=== PATIENT | female | born 1960 | race Caucasian/White ===

== ENCOUNTER → 2021-02-21 | Outpatient (CLI) | payer OTHER ==
[~2021-02-21] MED LIST: ALDACTONE 25MG25 M1 PO; CORDARONE200 MG/TAB PO; DIFLUCAN 40M40 MG/ML PO; ELIQUIS 2.5 PO; ELIQUIS 5MG PO; K-DUR20 MEQ PO; MAG-OX 400400 MG/TAB PO; MAGIC MOUTH PO; MAGNESIUM ELEM300 MG PO; ONE-A-DAY ESSE1 EACH PO; OXYCODONE H5 MG/5 ML PO; PROTONIX 40MG T40 MG PO; TUMS500 MG; TUMS500 MG PO; VITAMIN D31000 I1 PO; ZOFRAN ODT4 MG PO; ZOVIRSUSP PO
== END ==
LOC: COL.RAD 10:40
DX: J18.9 Pneumonia, unspecified organism (principal); R91.8 Other nonspecific abnormal finding of lung field

== ENCOUNTER 2021-02-27 08:00 | Inpatient (IN) | payer OTHER ==
[~2021-02-27] VITALS: Ht 177.8 cm; Wt 54.5 kg
[2021-02-27 09:07] LABS: BASO % 0.5 % (0.0-2.0); EOS % 0.5 % (0-4.0); GRAN # 4.5 (1.4-6.5); GRAN % 76.2 % (42.2-75.2); HEMATOCRIT 38.1 % (37.0-47.0); HEMOGLOBIN 13.4 g/dl (12.5-16.0); LYMPH # 0.8 (1.2-3.4); LYMPH % 13.1 % (20.0-51.0); MEAN CELL VOLUME 88 fl (80.0-100.0); MEAN CORPUSCULAR HEMOGLOBIN 31 pg (27.0-31.0); MEAN CORPUSCULAR HGB CONC 35 g/dl (33.0-37.0); MEAN PLATELET VOLUME 8.4 fl (7.4-10.4); MONO # 0.5 (0.1-0.6); MONO % 9.2 % (1.7-9.3); PLATELET COUNT 295 K/mm3 (130-400); RED BLOOD COUNT 4.32 M/mm3 (4.10-5.30); REDCELL DISTRIBUTION WIDTH-CV 11.8 % (11.5-14.5)
[2021-02-27 09:22] LABS: ALBUMIN 4.4 gm/dL (3.5-5.0); BILIRUBIN,TOTAL 0.3 mg/dL (0.0-1.0); C-REACTIVE PROTEIN 3.5 mg/dL (0.0-0.9); CALCIUM 9.6 mg/dL (8.4-10.2); CREATININE, serum 0.49 (0.52-1.25); MAGNESIUM 1.7 mg/dL (1.6-2.3); POTASSIUM 3.7 mmol/L (3.4-5.0); TOTAL PROTEIN 8.1 gm/dL (6.4-8.2)
[2021-02-27 09:42] LABS: PH 5 (5-8); URINE APPEARANCE Hazy; URINE COLOR Yellow; URINE GLUCOSE Negative (NEGATIVE); URINE PROTEIN(semi-quant) 1+ (NEGATIVE)
[2021-02-27 09:43] LABS: URINE BILIRUBIN Negative (NEGATIVE); URINE BLOOD Negative (NEGATIVE); URINE KETONE 1+ (NEGATIVE); URINE LEUKOCYTE ESTERASE Negative (NEGATIVE); URINE NITRATE Negative (NEGATIVE); URINE UROBILINOGEN Negative (NEGATIVE)
[2021-02-27 09:45] LABS: SQUAMOUS EPITHELIAL 0-2 /hpf; URINE CALCIUM OXALATE CRYSTAL Present /hpf; URINE RBC 0-2 /hpf
[2021-02-27 09:46] LABS: MUCOUS Present /lpf; URINE BACTERIA Rare /hpf
[2021-02-27 09:48] LABS: COLLECTION METHOD CLEAN CATCH
[2021-02-27] MEDS ORDERED: ELIQUIS 5MG PO (11:26)
[2021-02-27] MEDS ORDERED: K-DUR20 MEQ PO (11:28)
[2021-02-27] MEDS ORDERED: ALDACTONE 25MG25 M1 PO (11:29)
[2021-02-27] MEDS ORDERED: ZOFRAN ODT4 MG PO (11:30)
[2021-02-27] MEDS ORDERED: VITAMIN D31000 I1 PO (11:31)
[2021-02-27] MEDS ORDERED: MAGNESIUM ELEM300 MG PO (11:31)
[2021-02-27] MEDS ORDERED: ONE-A-DAY ESSE1 EACH PO (11:32)
[2021-02-27 12:41] VITALS: BP 132/70; PULSE 102; TEMP 97.9
[2021-02-27 16:14] LABS: CALCIUM 9.4 mg/dL (8.4-10.2); CREATININE, serum 0.5 (0.52-1.25); POTASSIUM 3.5 mmol/L (3.4-5.0)
[2021-02-27 17:33] VITALS: BP 123/69; PULSE 97; TEMP 97.4
[2021-02-27 19:58] VITALS: BP 133/72; PULSE 92; TEMP 98.3
[2021-02-27 23:01] VITALS: BP 111/56; PULSE 119; TEMP 98.1
[2021-02-27 23:34] LABS: MAGNESIUM 1.8 mg/dL (1.6-2.3); PHOSPHOROUS 3.8 mg/dL (2.5-4.5)
[2021-02-27 23:37] VITALS: BP 108/84; PULSE 100
[2021-02-27 23:45] VITALS: PULSE 161
[2021-02-27 23:49] LABS: ARTERIAL BLD GAS O2 SATURATION 95.8 % (92-100); ARTERIAL BLOOD GAS HCO3 24.9 meq/L (22-26); ARTERIAL BLOOD GAS PCO2 33.7 mmHg (35-45); ARTERIAL BLOOD GAS PO2 75.2 mmHg (80-100); ARTERIAL BLOOD GAS pH 7.49 (7.35-7.45)
[2021-02-28] VITALS (786 sets, daily range): BP systolic 68–130; BP diastolic 49–99; PULSE 75–118; TEMP 97.6–97.9; O2SAT 65–100
[2021-02-28 00:02] LABS: TROPONIN-I < 0.012 ng/mL (0.000-0.035)
[2021-02-28 02:28] LABS: BASO % 0.5 % (0.0-2.0); EOS # 0.1 (0.0-0.7); EOS % 1.5 % (0-4.0); GRAN # 4.2 (1.4-6.5); GRAN % 68.5 % (42.2-75.2); HEMOGLOBIN 12.8 g/dl (12.5-16.0); LYMPH # 1.1 (1.2-3.4); LYMPH % 17.3 % (20.0-51.0); MEAN CELL VOLUME 88 fl (80.0-100.0); MEAN CORPUSCULAR HEMOGLOBIN 31 pg (27.0-31.0); MEAN CORPUSCULAR HGB CONC 35 g/dl (33.0-37.0); MEAN PLATELET VOLUME 7.8 fl (7.4-10.4); MONO # 0.7 (0.1-0.6); MONO % 11.9 % (1.7-9.3); PLATELET COUNT 237 K/mm3 (130-400); REDCELL DISTRIBUTION WIDTH-CV 11.9 % (11.5-14.5)
[2021-02-28 02:29] LABS: HEMATOCRIT 36.2 % (37.0-47.0)
[2021-02-28 02:37] LABS: ANION GAP 8 mmol/L (7-16); BLOOD UREA NITROGEN 9 mg/dL (7-17); CARBON DIOXIDE 25 mmol/L (22-30); CHLORIDE 94 mmol/L (98-107); CREATININE, serum 0.38 (0.52-1.25); GLUCOSE 110 mg/dL (74-106); POTASSIUM 3.7 mmol/L (3.4-5.0); SODIUM 127 mmol/L (137-145)
[2021-02-28 02:48] LABS: MAGNESIUM 1.8 mg/dL (1.6-2.3); PHOSPHOROUS 4.4 mg/dL (2.5-4.5)
[2021-02-28 02:50] LABS: TROPONIN-I < 0.012 ng/mL (0.000-0.035)
[2021-02-28 06:56] LABS: BASO % 0.3 % (0.0-2.0); EOS % 0.3 % (0-4.0); GRAN # 4.5 (1.4-6.5); GRAN % 77.1 % (42.2-75.2); HEMOGLOBIN 12.4 g/dl (12.5-16.0); LYMPH # 0.7 (1.2-3.4); LYMPH % 11.1 % (20.0-51.0); MEAN CELL VOLUME 90 fl (80.0-100.0); MEAN CORPUSCULAR HEMOGLOBIN 32 pg (27.0-31.0); MEAN CORPUSCULAR HGB CONC 35 g/dl (33.0-37.0); MEAN PLATELET VOLUME 8.4 fl (7.4-10.4); MONO # 0.6 (0.1-0.6); MONO % 10.5 % (1.7-9.3); PLATELET COUNT 254 K/mm3 (130-400); RED BLOOD COUNT 3.91 M/mm3 (4.10-5.30); REDCELL DISTRIBUTION WIDTH-CV 11.9 % (11.5-14.5)
[2021-02-28 06:59] LABS: HEMATOCRIT 35.1 % (37.0-47.0)
[2021-02-28 07:10] LABS: CALCIUM 8.4 mg/dL (8.4-10.2); CREATININE, serum 0.34 (0.52-1.25); MAGNESIUM 1.8 mg/dL (1.6-2.3)
[2021-03-01] VITALS (333 sets, daily range): BP systolic 87–114; BP diastolic 52–77; PULSE 87–93; TEMP 97.9–98.3; O2SAT 82–100
[2021-03-01 04:35] LABS: BASO % 0.5 % (0.0-2.0); EOS # 0.1 (0.0-0.7); EOS % 1.5 % (0-4.0); GRAN # 4.5 (1.4-6.5); GRAN % 75.4 % (42.2-75.2); HEMOGLOBIN 10.9 g/dl (12.5-16.0); LYMPH # 0.7 (1.2-3.4); LYMPH % 11.3 % (20.0-51.0); MEAN CELL VOLUME 91 fl (80.0-100.0); MEAN CORPUSCULAR HEMOGLOBIN 31 pg (27.0-31.0); MEAN CORPUSCULAR HGB CONC 34 g/dl (33.0-37.0); MEAN PLATELET VOLUME 8.1 fl (7.4-10.4); MONO # 0.6 (0.1-0.6); MONO % 10.8 % (1.7-9.3); PLATELET COUNT 234 K/mm3 (130-400); RED BLOOD COUNT 3.51 M/mm3 (4.10-5.30); REDCELL DISTRIBUTION WIDTH-CV 12.2 % (11.5-14.5)
[2021-03-01 04:46] LABS: CALCIUM 8.5 mg/dL (8.4-10.2); CREATININE, serum 0.36 (0.52-1.25); POTASSIUM 3.9 mmol/L (3.4-5.0)
[2021-03-01] MEDS ORDERED: ELIQUIS 5MG PO (11:24)
[2021-03-01] MEDS ORDERED: CORDARONE200 MG/TAB PO (11:27)
== END 2021-03-01 13:03 | disposition home or self-care (01) | DRG 180 ==
LOC: COL.ER 08:00 → ICU 10:47 → MEDICAL 10:47 → ICU 02-28 00:27 → MEDICAL 02-28 00:27 → ICU 03-01 13:03
PROVIDERS: Family Medicine; Nurse Practitioner Family; Physician Assistant; Student in an Organized Health Care Education/Training Program
PROC: 0BBG3ZX Excision of Left Upper Lung Lobe, Percutaneous Approach, Diagnostic (ICD-10-PCS; principal; 2021-02-28)
DX: C34.12 Malignant neoplasm of upper lobe, left bronchus or lung (principal); G93.41 Metabolic encephalopathy; J96.01 Acute respiratory failure with hypoxia; E22.2 Syndrome of inappropriate secretion of antidiuretic hormone; E46 Unspecified protein-calorie malnutrition; I50.32 Chronic diastolic (congestive) heart failure; I50.9 Heart failure, unspecified; E87.8 Other disorders of electrolyte and fluid balance, not elsewhere classified; E87.6 Hypokalemia; E83.42 Hypomagnesemia; I95.9 Hypotension, unspecified; I48.91 Unspecified atrial fibrillation; F41.9 Anxiety disorder, unspecified; I49.9 Cardiac arrhythmia, unspecified; Z87.891 Personal history of nicotine dependence; Z88.1 Allergy status to other antibiotic agents; Z88.0 Allergy status to penicillin; Z88.2 Allergy status to sulfonamides
CPT/HCPCS: 99233-AI; 99239; A9585; J1650; J2060; J2405; J3475; J7030; J7040; J7120; Q9967

== ENCOUNTER → 2021-03-01 | Outpatient (CLI) | payer OTHER | LOC: SDCO 09:00 → EDSTATUS 09:00 → ZCOL.LAB 12:00 | DX: R91.8 Other nonspecific abnormal finding of lung field (principal) ==

== ENCOUNTER 2021-04-03 11:23 | Day surgery (SDC) | payer OTHER ==
[~2021-04-03] VITALS: Ht 177.8 cm; Wt 51.0 kg
[~2021-04-03 11:23] MED LIST changes: -DIFLUCAN 40M40 MG/ML PO; -ELIQUIS 2.5 PO; -MAG-OX 400400 MG/TAB PO; -MAGIC MOUTH PO; -OXYCODONE H5 MG/5 ML PO; -PROTONIX 40MG T40 MG PO; -TUMS500 MG; -TUMS500 MG PO; -ZOVIRSUSP PO
[2021-04-03 11:45] VITALS: BP 115/61; PULSE 83; TEMP 97.8
[2021-04-03] MEDS ORDERED: ELIQUIS 5MG PO (12:04)
[2021-04-03] MEDS ORDERED: CORDARONE200 MG/TAB PO (12:05)
[2021-04-03 14:34] VITALS: BP 132/77; PULSE 73; TEMP 97.3
--- NOTE | 2021-04-03 14:34 | NUR ---
The patient arrived back to [facility] from the operating room at this time. The patient appears alert and oriented and denies any pain or nausea at this time. Post operative vital signs were started at this time. The patient's is at her bedside at this time. The patient denies wanting anything to eat or drink at this time. Will continue to monitor the patient.
[2021-04-03 14:35] LABS: MEAN CELL VOLUME 90 fl (80.0-100.0); MEAN CORPUSCULAR HGB CONC 34 g/dl (33.0-37.0); MEAN PLATELET VOLUME 8.9 fl (7.4-10.4); PLATELET COUNT 116 K/mm3 (130-400); RED BLOOD COUNT 2.88 M/mm3 (4.10-5.30); REDCELL DISTRIBUTION WIDTH-CV 12.2 % (11.5-14.5)
[2021-04-03 14:44] LABS: HEMOGLOBIN 8.9 g/dl (12.5-16.0); MEAN CORPUSCULAR HEMOGLOBIN 31 pg (27.0-31.0)
[2021-04-03 14:49] VITALS: BP 130/65; PULSE 56
--- NOTE | 2021-04-03 14:49 | NUR ---
The patient continues to deny wanting anything to eat or drink at this time. The patient's vital signs appear stable. remains at her bedside. Dressings to her right chest and neck appear clean dry and intact. Call light is within reach. Will continue to monitor the patient.
[2021-04-03 15:05] VITALS: BP 128/68; PULSE 62
--- NOTE | 2021-04-03 15:05 | NUR ---
Discharge instrucitons were reviewed with the patient and her at this time. They both verbalized understanding and have no questions for the nurse at this time. The patient's IV to her left forearm was was removed and a pressure dressing was applied to the site. The nurse instructed the patient to get dressed and notify the staff when she is ready to be escorted out.
[2021-04-03 15:15] LABS: BAND 1 % (0-10); BASOPHIL 2 % (0-2); EOSINOPHIL 3 % (0-4); LYMPHOCYTE 48 % (20.0-51.0); NEUTROPHILS 46 % (42.0-75.2); PLATELET ESTIMATE NORMAL (NORMAL)
--- NOTE | 2021-04-03 15:15 | NUR ---
The patient was escorted out via wheelchair to a private vehicle by KIRILL Mireles. The patient's is present to drive her home.
[2021-04-03 15:16] LABS: HYPOCHROMIA 1+; OVALOCYTES 1+
== END 2021-04-03 15:15 | disposition home or self-care (01) ==
LOC: SDCO 11:23
PROVIDERS: Surgery
DX: Z45.2 Encounter for adjustment and management of vascular access device (principal); C34.82 Malignant neoplasm of overlapping sites of left bronchus and lung; C77.1 Secondary and unspecified malignant neoplasm of intrathoracic lymph nodes; C78.1 Secondary malignant neoplasm of mediastinum; I11.0 Hypertensive heart disease with heart failure; I50.9 Heart failure, unspecified; Z79.01 Long term (current) use of anticoagulants; Z79.899 Other long term (current) drug therapy; Z87.891 Personal history of nicotine dependence
CPT/HCPCS: C1788; J1644; J7120

== ENCOUNTER 2021-05-15 13:38 | Emergency (ER) | payer OTHER ==
[~2021-05-15] VITALS: Ht 175.3 cm; Wt 45.5 kg
[2021-05-15 14:29] VITALS: TEMP 98
[2021-05-15 15:49] LABS: MEAN CELL VOLUME 94 fl (80.0-100.0); MEAN CORPUSCULAR HGB CONC 33 g/dl (33.0-37.0); MEAN PLATELET VOLUME 9.5 fl (7.4-10.4); PLATELET COUNT 50 K/mm3 (130-400); REDCELL DISTRIBUTION WIDTH-CV 18.1 % (11.5-14.5)
[2021-05-15 15:50] LABS: MEAN CORPUSCULAR HEMOGLOBIN 31 pg (27.0-31.0)
[2021-05-15 15:51] LABS: HEMOGLOBIN 5.2 g/dl (12.5-16.0)
[2021-05-15 16:07] LABS: ALBUMIN 3.6 gm/dL (3.5-5.0); BILIRUBIN,TOTAL 0.3 mg/dL (0.0-1.0); CALCIUM 9.3 mg/dL (8.4-10.2); CREATININE, serum 0.39 (0.52-1.25); POTASSIUM 3.6 mmol/L (3.4-5.0); TOTAL PROTEIN 6.6 gm/dL (6.4-8.2)
[2021-05-15 17:20] VITALS: BP 121/87; PULSE 91
[2021-05-15 17:28] LABS: C-REACTIVE PROTEIN 34.8 mg/dL (0.0-0.9)
[2021-05-15] MEDS ORDERED: ELIQUIS 2.5 PO (19:34)
[2021-05-15] MEDS ORDERED: MAG-OX 400400 MG/TAB PO (19:36)
[2021-05-15] MEDS ORDERED: OXYCODONE H5 MG/5 ML PO (19:37)
[2021-05-15] MEDS ORDERED: PROTONIX 40MG T40 MG PO (19:38)
[2021-05-15] MEDS ORDERED: MAGIC MOUTH PO (19:38)
[2021-05-16 07:59] LABS: PATHOLOGY DIFF REVIEW OK +
== END 2021-05-15 17:20 | disposition home or self-care (01) ==
LOC: COL.ER 13:38
PROVIDERS: Family Medicine
DX: E86.0 Dehydration (principal); K29.00 Acute gastritis without bleeding; J90 Pleural effusion, not elsewhere classified; D64.9 Anemia, unspecified; C34.12 Malignant neoplasm of upper lobe, left bronchus or lung; I50.9 Heart failure, unspecified; Z87.891 Personal history of nicotine dependence; Z79.01 Long term (current) use of anticoagulants
CPT/HCPCS: C9113; J2270; J2405; J7120

== ENCOUNTER 2021-05-15 16:07 | Outpatient (RCR) | payer OTHER ==
[2021-05-15] VITALS (9 sets, daily range): BP systolic 112–123; BP diastolic 45–67; PULSE 80–95; TEMP 98–99
[~2021-05-15] VITALS: Ht 175.3 cm; Wt 41.8 kg
[2021-05-15] MEDS ORDERED: ELIQUIS 2.5 PO (19:34)
[2021-05-15] MEDS ORDERED: MAG-OX 400400 MG/TAB PO (19:36)
[2021-05-15] MEDS ORDERED: OXYCODONE H5 MG/5 ML PO (19:37)
[2021-05-15] MEDS ORDERED: MAGIC MOUTH PO (19:38)
[2021-05-15] MEDS ORDERED: PROTONIX 40MG T40 MG PO (19:38)
--- NOTE | 2021-05-15 23:45 | NUR ---
PATIENT COMPLETED INFUSION OF 2 UNITS OF PRBC'S FLUSHED PORT A CATH AND HEPARIN 500 UNITS/5ML INSTILLED ORDERED, NO ADVERSE REACTIONS NOTED INSTRUCTED PATIENT AND OF SIGNS AND SYMPTOMS OF TRANSFUSION REACTION, PATIENT TRANSPORTED VIA W/C TO AWAITING PERSONAL VEHICLE
[2021-05-22] MEDS ORDERED: DIFLUCAN 40M40 MG/ML PO (09:21)
[2021-05-22] MEDS ORDERED: ZOVIRSUSP PO (09:22)
[2021-05-22] MEDS ORDERED: TUMS500 MG PO (09:24)
== END 2021-05-23 15:21 | disposition home or self-care (01) ==
LOC: EUO 16:07
DX: Z95.9 Presence of cardiac and vascular implant and graft, unspecified (principal)
CPT/HCPCS: J2270; J2405; J7050; P9016

== ENCOUNTER → 2021-06-14 | Outpatient (CLI) | payer OTHER ==
[~2021-06-14] MED LIST changes: +DIFLUCAN 40M40 MG/ML PO; +ELIQUIS 2.5 PO; +MAG-OX 400400 MG/TAB PO; +MAGIC MOUTH PO; +OXYCODONE H5 MG/5 ML PO; +PROTONIX 40MG T40 MG PO; +TUMS500 MG; +TUMS500 MG PO; +ZOVIRSUSP PO
== END ==
LOC: COL.RAD 09:51
DX: C34.32 Malignant neoplasm of lower lobe, left bronchus or lung (principal); Z98.82 Breast implant status; J47.9 Bronchiectasis, uncomplicated; J18.1 Lobar pneumonia, unspecified organism
CPT/HCPCS: J1644; Q9967

== ENCOUNTER 2021-06-21 10:30 | Outpatient (RCR) | payer OTHER ==
[2021-06-21] VITALS (9 sets, daily range): BP systolic 93–129; BP diastolic 39–68; PULSE 66–84; TEMP 97.9–99
[~2021-06-21] VITALS: Ht 175.3 cm; Wt 47.7 kg
[~2021-06-21 10:30] MED LIST changes: -TUMS500 MG
[2021-06-21] MEDS ORDERED: TUMS500 MG (14:20)
[2021-06-21] MEDS ORDERED: ELIQUIS 5MG PO (14:22)
== END 2021-06-21 19:10 | disposition home or self-care (01) ==
LOC: EUO 10:30
DX: C34.32 Malignant neoplasm of lower lobe, left bronchus or lung (principal)
CPT/HCPCS: J1644; J7050; P9016

== ENCOUNTER → 2021-07-26 | Outpatient (CLI) | payer OTHER ==
[~2021-07-26] MED LIST changes: +TUMS500 MG
== END ==
LOC: COL.RAD 12:40
DX: R91.8 Other nonspecific abnormal finding of lung field (principal); C34.32 Malignant neoplasm of lower lobe, left bronchus or lung
CPT/HCPCS: J1644; Q9967

== ENCOUNTER → 2021-08-13 | Outpatient (CLI) | payer OTHER | LOC: COL.RAD 12:09 | DX: C34.12 Malignant neoplasm of upper lobe, left bronchus or lung (principal) | CPT/HCPCS: A9585 ==

== ENCOUNTER → 2021-11-01 | Outpatient (CLI) | payer BC | LOC: COL.RAD 10:41 | DX: C34.32 Malignant neoplasm of lower lobe, left bronchus or lung (principal); J43.9 Emphysema, unspecified; M48.54XA Collapsed vertebra, not elsewhere classified, thoracic region, initial encounter for fracture | CPT/HCPCS: Q9967 ==

== ENCOUNTER → 2021-11-13 | Outpatient (CLI) | payer BC | LOC: COL.RAD 12:12 | DX: Z51.0 Encounter for antineoplastic radiation therapy (principal); C34.12 Malignant neoplasm of upper lobe, left bronchus or lung; G31.9 Degenerative disease of nervous system, unspecified | CPT/HCPCS: A9575; J1644 ==

== ENCOUNTER → 2022-02-13 | Outpatient (CLI) | payer BC | LOC: COL.RAD 09:36 | DX: C34.90 Malignant neoplasm of unspecified part of unspecified bronchus or lung (principal); M48.54XA Collapsed vertebra, not elsewhere classified, thoracic region, initial encounter for fracture | CPT/HCPCS: J1644; Q9967 ==

== ENCOUNTER → 2022-06-02 | Outpatient (CLI) | payer BC | LOC: COL.RAD 07:39 | DX: C34.90 Malignant neoplasm of unspecified part of unspecified bronchus or lung (principal); J43.9 Emphysema, unspecified | CPT/HCPCS: J1644; Q9967 ==

== ENCOUNTER → 2022-12-16 | Outpatient (CLI) | payer BC | LOC: COL.RAD 09:49 | DX: J98.4 Other disorders of lung (principal); C34.32 Malignant neoplasm of lower lobe, left bronchus or lung | CPT/HCPCS: Q9967 ==

== ENCOUNTER → 2023-01-01 | Outpatient (CLI) | payer BC | LOC: COL.RAD 12:17 | DX: Z51.0 Encounter for antineoplastic radiation therapy (principal); C34.12 Malignant neoplasm of upper lobe, left bronchus or lung | CPT/HCPCS: A9575 ==

== ENCOUNTER → 2023-09-21 | Outpatient (CLI) | payer BC | LOC: COL.RAD 09:10 | DX: C34.32 Malignant neoplasm of lower lobe, left bronchus or lung (principal) | CPT/HCPCS: J1644; Q9967 ==

== ENCOUNTER → 2024-02-09 | Outpatient (CLI) | payer BC | LOC: COL.RAD 08:00 | DX: C34.32 Malignant neoplasm of lower lobe, left bronchus or lung (principal) ==

== ENCOUNTER 2024-07-01 18:19 | Inpatient (IN) | payer BC ==
[~2024-07-01] VITALS: Ht 175.3 cm; Wt 53.0 kg
[2024-07-01] MEDS ORDERED: fentaNYL 50 MCG/ML 2 ML VIAL IV ONE (19:00)
[2024-07-01] MEDS ORDERED: NS 1,000 ML IV ONE (19:00)
[2024-07-01 19:22] LABS: HEMOGLOBIN 12.1 g/dl (12.5-16.0); MEAN CELL VOLUME 103 fl (80.0-100.0); MEAN CORPUSCULAR HEMOGLOBIN 35 pg (27-31); MEAN CORPUSCULAR HGB CONC 34 g/dl (33.0-37.0); PLATELET COUNT 170 K/mm3 (130-400); RED BLOOD COUNT 3.51 M/mm3 (4.10-5.30); REDCELL DISTRIBUTION WIDTH-CV 14.2 % (11.5-14.5)
[2024-07-01 19:29] LABS: HEMATOCRIT 36.1 % (37.0-47.0)
[2024-07-01 19:37] LABS: ALBUMIN 3.5 g/dL (3.4-4.8); BILIRUBIN,TOTAL 0.5 mg/dL (0.2-1.2); CALCIUM 9.3 mg/dL (8.4-10.2); CREATININE, serum 0.78 mg/dL (0.57-1.11); POTASSIUM 3.9 mEq/L (3.5-4.5); TOTAL PROTEIN 6.4 g/dl (6.2-8.1)
[2024-07-01 19:42] LABS: TROPONIN-I 0.011 ng/mL (0.00-0.033)
[2024-07-01 19:43] LABS: BAND 14 % (0-10); LYMPHOCYTE 2 % (20.0-51.0); METAMYELOCYTE 1 % (0-0); NEUTROPHILS 79 % (42.0-75.2)
[2024-07-01] MEDS ORDERED: VALIUM 5MG T5 MG/TAB PO (20:02)
[2024-07-01] MEDS ORDERED: LEXAPRO 10MG10 MG PO (20:02)
[2024-07-01] MEDS ORDERED: PROAIR HFA0.09 MG/AC IH (20:03)
[2024-07-01] MEDS ORDERED: VITAMIN D31000 IU PO (20:04)
[2024-07-01 20:20] VITALS: BP 114/74; PULSE 74; TEMP 97.4
[2024-07-01] MEDS ORDERED: Albuterol 0.042% Neb Soln 1.25 MG/3 ML UD IH PRN (20:30)
[2024-07-01] MEDS ORDERED: oxyCODONE 5 MG TAB PO PRN (20:30)
[2024-07-01] MEDS ORDERED: Acetaminophen 500 MG TAB PO PRN (20:45)
[2024-07-01] MEDS ORDERED: HYDROmorphone 0.5 MG/0.5 ML SYRINGE IV PRN (20:45)
[2024-07-01 21:00] VITALS: BP_SYST 114
[2024-07-01 22:07] LABS: COLLECTION METHOD CATHETER
[2024-07-01 22:16] LABS: URINE APPEARANCE CLEAR (CLEAR/HAZY); URINE BLOOD NEGATIVE (NEGATIVE); URINE COLOR YELLOW (YELLOW); URINE GLUCOSE NEGATIVE (NEGATIVE); URINE KETONE NEGATIVE (NEGATIVE); URINE NITRATE NEGATIVE (NEGATIVE); URINE PROTEIN(semi-quant) NEGATIVE (NEGATIVE); URINE UROBILINOGEN 0.2 E.U/dL (0.2-1.0)
[2024-07-01] MEDS ORDERED: Naloxone 0.4 MG/ML VIAL IV PRN (22:30)
[2024-07-01] MEDS ORDERED: LR 1,000 ML IV SCH (23:15)
[2024-07-02] VITALS (16 sets, daily range): BP systolic 100–124; BP diastolic 57–78; PULSE 79–99; TEMP 97.6–98.7
[2024-07-02 06:28] LABS: PROTHROMBIN TIME 10.5 SECONDS (9.7-12.8)
[2024-07-02 06:30] LABS: BASO % 0.4 % (0.0-2.0); EOS % 0.1 % (0.0-4.0); GRAN # 7.1 K/mm3 (1.4-6.5); HEMOGLOBIN 10.7 g/dl (12.5-16.0); LYMPH # 0.5 K/mm3 (1.2-3.4); LYMPH % 5.7 % (20.0-51.0); MEAN CELL VOLUME 102 fl (80.0-100.0); MEAN CORPUSCULAR HEMOGLOBIN 34 pg (27-31); MEAN CORPUSCULAR HGB CONC 33 g/dl (33.0-37.0); MEAN PLATELET VOLUME 9.3 fl (7.4-10.4); MONO # 0.6 K/mm3 (0.1-0.6); PLATELET COUNT 144 K/mm3 (130-400); RED BLOOD COUNT 3.16 M/mm3 (4.10-5.30); REDCELL DISTRIBUTION WIDTH-CV 13.9 % (11.5-14.5)
[2024-07-02 06:41] LABS: HEMATOCRIT 32.1 % (37.0-47.0)
[2024-07-02 06:43] LABS: CALCIUM 9.4 mg/dL (8.4-10.2); CREATININE, serum 0.73 mg/dL (0.57-1.11); POTASSIUM 4.9 mEq/L (3.5-4.5)
--- NOTE | 2024-07-02 07:58 | NUR ---
GERALDO GONZALEZ ROUNDED WITH ORTHO. PATIENT AND HER SPOUSE UPDATED ON PLAN OF CARE. PATIENT CONTINUES TO COMPLAIN OF ELEVATED PAIN. 08/23. MEDICATIONS ORDERED. TYLENOL OFFERED AND REFUSED. REPOSITIONING OF LEFT LEG OFFERED AND REFUSED. RIGHT LEG ELEVATED ON PILLOW. ICE ON HIP. JOSE JUAN AND SCDS TO RLE. IS GIVEN BY RT. SHE REMAINS NPO WITH NAUSEA. ZOFRAN NOT YET DUE. DENIES OTHER NEEDS AT THIS TIME
[2024-07-02] MEDS ORDERED: Ondansetron 4 MG/2 ML VIAL IV PRN (08:00)
[2024-07-02] MEDS ORDERED: hydrALAZINE 20 MG/ML 1 ML VIAL IV PRN (08:00)
[2024-07-02] MEDS ORDERED: fentaNYL 50 MCG/ML 1 ML SYRINGE/VIAL [PACU/SDC ONLY] IV PRN ×2 (08:00)
[2024-07-02] MEDS ORDERED: droPERidol 2.5 MG/ML 2 ML VIAL IV PRN (08:00)
[2024-07-02] MEDS ORDERED: Meperidine 50 MG/ML 1 ML VIAL IV PRN (08:00)
[2024-07-02] MEDS ORDERED: HYDROmorphone 1 MG/1 ML SYRINGE [PACU/SDC ONLY] IV PRN (08:00)
[2024-07-02] MEDS ORDERED: cefTRIAXone 1 G in Water For Injection,Sterile 10 ML IV SCH (09:00)
[2024-07-02] MEDS ORDERED: Amiodarone 200 MG TAB PO SCH (09:00)
[2024-07-02] MEDS ORDERED: predniSONE 20 MG TAB PO SCH (09:11)
--- NOTE | 2024-07-02 09:36 | NUR ---
SW met with patient to complete intake and discuss discharge planning, patient is preparing for surgery and her Elio Lobato was present and assisted with intake information. Patient reports that her PCP is Dr. Islas and pharmacy of choice is [facility] Patient resides in [place] with spouse, and currently reports independent with ADLs and uses inhaler but no additional DMEs reported. Patient has DPOA on file with hospital. Discharge plan: tbd
--- NOTE | 2024-07-02 09:40 | NUR ---
rounded. Patient remains in severe pain. Rating 15/10. Medication as ordered. Attempted repositioning. Hygiene provided with stick welder assist
[2024-07-02] MEDS ORDERED: Acetaminophen 500 MG TAB PO SCH ×2 (09:45→14:18)
[2024-07-02] MEDS ORDERED: dexAMETHasone 10 MG/ML VIAL ONE (10:16)
[2024-07-02] MEDS ORDERED: Lidocaine PF 2% (20 MG/ML) 5 ML VIAL ONE (10:16)
[2024-07-02] MEDS ORDERED: fentaNYL 50 MCG/ML 2 ML VIAL ONE (11:08)
[2024-07-02] MEDS ORDERED: Midazolam 2 MG/2 ML VIAL ONE (11:08)
[2024-07-02] MEDS ORDERED: Ondansetron 4 MG/2 ML VIAL ONE (11:09)
[2024-07-02] MEDS ORDERED: NS 10 ML IV ONE (11:09)
--- NOTE | 2024-07-02 11:30 | NUR ---
Patient to OR with Cammy. Will await her return. Patient all prepped for OR. Ticket to ride. Pre op check list completed. IVF to gravity.
[2024-07-02] MEDS ORDERED: ePHEDrine 50 MG/ML VIAL ONE (12:27)
[2024-07-02] MEDS ORDERED: Topical Skin Adhesive 1 EACH (1 ML) TOP ONE (12:37)
--- NOTE | 2024-07-02 12:47 | NUR ---
Data: Patient declined spiritual care visit offered during Immigration Officer rounds, but did accept prayer. Assessment: Patient is tired; difficulty breathing; desired prayer. Plan of Care: Immigration Officer offered a prayer for healing. Chaplains will remain available as needed/requested while Patient is admitted to this hospital.
[2024-07-02] MEDS ORDERED: Phenylephrine 10 MG/ML VIAL ONE (12:52)
[2024-07-02] MEDS ORDERED: NS 100 ML IV ONE (12:52)
[2024-07-02] MEDS ORDERED: Albuterol/Ipratropium 3 MG-0.5 MG/3 ML Neb Soln IH SCH (13:00)
[2024-07-02] MEDS ORDERED: Magnes Hydrox (MOM) 80 MG/ML 30 ML CUP PO PRN (13:30)
[2024-07-02] MEDS ORDERED: Naloxone 0.4 MG/ML VIAL IV PRN (13:30)
[2024-07-02] MEDS ORDERED: oxyCODONE 5 MG TAB PO PRN (13:30)
[2024-07-02] MEDS ORDERED: ceFAZolin 1 G in Water For Injection,Sterile 10 ML IV SCH (17:18)
--- NOTE | 2024-07-02 17:56 | NUR ---
Patient resting in bed post op, her spouse at bedside. Patient anxious at times and having intermittent confusion. Reoriented as needed and support provided. High fall risk protocol followed. Left hip gauze and tegaderm dressing CDI. IV to INT. VSS post op on room air. TEDS and SCDS placed to BLE. Pillows for positioning. Roxocodone for pain, pain much better now than before OR. Bailey to DD with adequate urine output. Patient dinner ordered, with minimal interest at this time, but PO intake encouraged.
[2024-07-02] MEDS ORDERED: Magnesium Oxide 400 MG TAB PO SCH (21:00)
[2024-07-02] MEDS ORDERED: Sennosides/Docusate 8.6-50 MG TAB PO SCH (21:00)
[2024-07-03] VITALS (11 sets, daily range): BP systolic 95–138; BP diastolic 58–78; PULSE 86–118; TEMP 97.4–98.2
[2024-07-03] MEDS ORDERED: Acetaminophen 500 MG TAB PO SCH
--- NOTE | 2024-07-03 01:12 | NUR ---
PT VERY CONFUSED, CALLING 911 STATING SOMEONE IS IN HER ROOM TRYING TO HARM HER, VERY AGITATED, REFUSES TO BELIEVE STAFF THAT SHE IS IN THE HOSPITAL. PT'S SPOUSE CALLED AND HE IS COMING UP TO THE HOSPITAL TO STAY WITH HER.
--- NOTE | 2024-07-03 02:29 | NUR ---
PT'S SPOUSE MAKEDA HERE, AFTER SPEAKING WITH THIS RN AND MAKEDA, PT SLOWLY REMEMBERING WHERE SHE IS AND WHY, PT STATES "I MUST HAVE JUST HAD A BAD DREAM" DISCUSSED HOW WHEN PT FELL AND HIT HER HEAD SHE REFUSED CT SCAN, SHE WANTS TO TALK TO DOCTOR IN THE MORNING ABOUT GETTING THIS DONE TODAY IF CONFUSION CONTINUES. MAKEDA WILL BE STAYING FOR THE REST OF THE NOC.
--- NOTE | 2024-07-03 05:34 | NUR ---
CALLED TO ROOM BY PT'S SPOUSE, PT ATTEMPTING TO GET OUT OF BED ON HER OWN TO USE RESTROOM, NOT LISTENING TO SPOUSE THAT SHE NEEDS TO WAIT FOR HELP, ASSISTED PT TO BSC WITH STAFF X2, PT CONFUSED AGAIN, THINKS PEOPLE ARE OUT IN THE [place] TO GET HER, THIS RN GAVE OXYCODONE AT 0145 FOR C/O PAIN, SPOUSE THINKS THIS MAY HAVE MADE HER CONFUSED AGAIN. PT UNABLE TO HAVE BM, TRANSFERRED BACK TO BED, PT VERY SUSPICIOUS OF STAFF SPEAKING WITH MAKEDA, THINKS WE "ARE UP TO SOMETHING"
[2024-07-03 06:19] LABS: MEAN CORPUSCULAR HGB CONC 35 g/dl (33.0-37.0); MEAN PLATELET VOLUME 9.5 fl (7.4-10.4); PLATELET COUNT 136 K/mm3 (130-400); RED BLOOD COUNT 2.57 M/mm3 (4.10-5.30); REDCELL DISTRIBUTION WIDTH-CV 13.6 % (11.5-14.5)
--- NOTE | 2024-07-03 06:28 | NUR ---
rec'd phone call from pt's daughter, Christina, she reports that patient is a heavy, daily drinker and believes some of this confusion is withdrawel and DTs. after speaking with daughter, spoke with Elio who confirmed this info. will pass this on and get CIWA started for pt.
[2024-07-03 06:33] LABS: HEMATOCRIT 25.2 % (37.0-47.0); HEMOGLOBIN 8.7 g/dl (12.5-16.0); MEAN CELL VOLUME 98 fl (80.0-100.0); MEAN CORPUSCULAR HEMOGLOBIN 34 pg (27-31)
[2024-07-03 06:38] LABS: CALCIUM 9.9 mg/dL (8.4-10.2); CREATININE, serum 0.76 mg/dL (0.57-1.11); MAGNESIUM 1.7 mg/dL (1.6-2.6); POTASSIUM 4.4 mEq/L (3.5-4.5)
--- NOTE | 2024-07-03 07:00 | NUR ---
0700-LATE ENTRY- PIV IN LW DISLODGED, SITE DC'D, ACCESSED PORTACATH WITH 19G 0.75 MONTGOMERY NEEDLE WITH IMMEDIATE BLOOD RETURN, USING ASEPTIC TECHNIQUE, PT COOPERATIVE WITH PROCEDURE WITH SPOUSE ASSISTING.
[2024-07-03 07:36] LABS: BAND 8 % (0-10); LYMPHOCYTE 2 % (20.0-51.0); NEUTROPHILS 86 % (42.0-75.2)
[2024-07-03 07:37] LABS: PLATELET ESTIMATE NORMAL (NORMAL)
[2024-07-03] MEDS ORDERED: Calcium Carbonate 500 MG TAB PO SCH (09:00)
[2024-07-03] MEDS ORDERED: Ascorbic Acid 500 MG TAB PO SCH (09:00)
[2024-07-03] MEDS ORDERED: Rivaroxaban 10 MG TAB PO SCH (09:00)
[2024-07-03] MEDS ORDERED: Cholecalciferol (Vit D3) 25 MCG (1,000 Units) TAB PO SCH (09:00)
[2024-07-03] MEDS ORDERED: Folic Acid 1 MG TAB PO SCH (09:14)
[2024-07-03] MEDS ORDERED: LORazepam 2 MG/ML 1 ML VIAL IV PRN (09:15)
[2024-07-03] MEDS ORDERED: Mag/Al Hydrox/Simeth Susp 30 ML CUP PO PRN (09:15)
--- NOTE | 2024-07-03 09:38 | NUR ---
wine cellar worker was informed by RN that pt is very confused and not oriented. She is reportedly likely heavily detoxing. SW spoke with DAVIN Putnam who reports pt will need 48-72 hours of work up entailing a CT scan of her head due to fall with impact and UTI potentially causing confusion. PT/OT Pending Discharge Plan: tbd, medical clearance needed to assess options
--- NOTE | 2024-07-03 10:15 | NUR ---
PT REFUSED TX
--- NOTE | 2024-07-03 10:33 | NUR ---
MOVED PT FROM CLOSER TO NURSES STATION. PT CONFUSED AND AGGITATED, ATTEMPTING TO GET OUT OF BED BY SELF. PT NOT COMPREHENDING ANYTHING THIS NURSE EXPLAINS TO HER. PT TOOK 3 OR 4 OF HER MORNING MEDS AND THEN STATED "I DO NOT TAKE THESE MEDICATIONS" AND REFUSED TO TAKE THE REST. PT STATED THAT SHE NO LONGER WANTED THIS NURSE A NURSE BECAUSE "WE ARE JUST NOT GETTING ALONG" AFTER TRYING TO HELP HER ADJUST HER BED. PT DOWN AT CT RIGHT NOW.
[2024-07-03] MEDS ORDERED: Multivitamin TAB PO SCH ×2 (12:00→17:00)
--- NOTE | 2024-07-03 16:47 | NUR ---
PT SEEMS TO CONTINUE TO GET MORE CONFUSED. HAS TO BE REORIENTED FREQUENTLY. MEWS SCORE OF 3 REPORTED TO RADHA.
--- NOTE | 2024-07-03 17:13 | NUR ---
Patient taken to CT in bed this AM. Was slightly confused but tolerated good. Patient did mention potentially losing a sweater while in CT. I assured her we didn't remove a sweater and she didn't bring one down with her.
--- NOTE | 2024-07-03 18:25 | NUR ---
pt becoming increasingly confused and aggitated. pt calling daughter and and telling them "they are trying to kill me". and daughter understand what is going on. gave more ativan. atempted to call hospitalist to get something else ordered for pt. no answer.
--- NOTE | 2024-07-03 18:50 | NUR ---
PT AGITATED, TRYING TO GET OUT OF BED ON HER OWN, NOT LISTENING TO STAFF, VERY SUSPICIOUS OF STAFF'S INTENTIONS, SPOKE WITH PT'S DAUGHTER SUHA PER PHONE, SHE STATED THAT HALDOL HAS BEEN THE ONLY MEDICATION THAT HAS HELPED IN THE PAST, NOTIFIED DAVIN TAVERAS PER PHONE, ORDER REC'D.
[2024-07-03] MEDS ORDERED: Haloperidol Lactate 5 MG/ML VIAL IV ONE (19:00)
--- NOTE | 2024-07-03 19:50 | NUR ---
ATTEMPTED TO GIVEN HALDOL PER PORTACATH, UNABLE TO GET BLOOD RETURN FROM SITE, MONTGOMERY NEEDLE REMOVED, ATTEMPTED TO RE ACCESS PORT USING NEW NEEDLE AND STERILE TECHNIQUE WITH ASSIST OF 2 STAFF, UNABLE TO GET ANY BLOOD RETURN ON EACH ATTEMPT, TRIED 3 DIFFERENT NEEDLES. PIV PLACED IN RFA ON 1ST ATTEMPT, PT STRIKING OUT AT STAFF AT TIMES, VERY AGITATED, KEEPS SAYING WE ARE KILLING HER DOGS, HALDOL DOSE GIVEN, PT RESTING IN BED AFTERWARDS, LOOKING AT HER TABLET.
[2024-07-04] VITALS (14 sets, daily range): BP systolic 97–149; BP diastolic 52–87; PULSE 91–116; TEMP 97.5–98.7
--- NOTE | 2024-07-04 00:49 | NUR ---
RN OBTAINED PT VS, EASILY WAKES AND BECOMES CONFUSED, TRYING TO GET OUT OF BED ALONE, CIWA SCORE 9, 1 MG IV ATIVAN GIVEN PER PROTOCOL.
--- NOTE | 2024-07-04 06:05 | NUR ---
pt has slept well this shift after haldol x1 and ativan x1, wakes briefly, tries to get up without help but easily redirects with telesitter prompts and/or staff in room. issa draining cloudy yellow urine, has not taken in alot of po intake tonite. up to bsc this am to attempt a bm, no results, 2 assist with wlkr and gb
--- NOTE | 2024-07-04 07:30 | NUR ---
Patient was assisted up to chair this am, 2 assist with walker to chair. . tele sitter called patient restless. Patient wanting out of bed. Safety reviewed with patient, she does not follow direction well. Uses walker poorly, not constant reminders to keep her safe. High fall risk protocol. Warm blankets for comfort. breakfast ordered.
--- NOTE | 2024-07-04 09:40 | NUR ---
Patient worked with therapy. All morning medications reviewed one by one and explained. Patient still refused some medication, but was agreeable to take some. See EMAR. Verified patient able to have xarelto this am with [facility], reviewed H&H. Pharmacy called about patient concerns about payment of xarelto they will round on patient. Alcohol detox, medication as ordered. Patient anxious and paraniod. see emar
[2024-07-04 10:20] LABS: HEMATOCRIT 23.1 % (37.0-47.0); HEMOGLOBIN 7.9 g/dl (12.5-16.0)
[2024-07-04 10:23] LABS: CREATININE, serum 0.7 mg/dL (0.57-1.11); POTASSIUM 3.7 mEq/L (3.5-4.5)
[2024-07-04 10:51] LABS: BASO % 0.1 % (0.0-2.0); EOS % 0.1 % (0.0-4.0); GRAN # 7.9 K/mm3 (1.4-6.5); GRAN % 86.8 % (42.2-75.2); LYMPH # 0.4 K/mm3 (1.2-3.4); LYMPH % 4.2 % (20.0-51.0); MEAN CELL VOLUME 100 fl (80.0-100.0); MEAN CORPUSCULAR HGB CONC 35 g/dl (33.0-37.0); MONO # 0.7 K/mm3 (0.1-0.6); MONO % 8.1 % (1.7-9.3); PLATELET COUNT 129 K/mm3 (130-400); RED BLOOD COUNT 2.26 M/mm3 (4.10-5.30); REDCELL DISTRIBUTION WIDTH-CV 14.3 % (11.5-14.5)
[2024-07-04 10:53] LABS: HEMATOCRIT 22.6 % (37.0-47.0); HEMOGLOBIN 7.9 g/dl (12.5-16.0); MEAN CORPUSCULAR HEMOGLOBIN 35 pg (27-31)
[2024-07-04] MEDS ORDERED: Ferrous Sulfate 325 MG TAB PO SCH (12:00)
--- NOTE | 2024-07-04 12:27 | NUR ---
D: Process Improvement Engineer stopped by room on rounds. A: Pt was resting and content with in the room. Pt has no needs right now. P: Process Improvement Engineer informed pt that if she needed anything from the time study analyst area to let her nurse know. Process Improvement Engineer will follow up as needed.
--- NOTE | 2024-07-04 12:40 | NUR ---
Patient continues to have minimal appetite. Po intake encouraged. Noon medication reviewed. Pills cut in half per request, but not argreeable to take. See EMAR. Patient very irritable and aggitated. Detox protocol, see emar. her supportive spouse remains at bedside.
[2024-07-04] MEDS ORDERED: LORAZEPAM PO PRN (12:45)
--- NOTE | 2024-07-04 14:40 | NUR ---
Patient again very irriated, not wanting her vitals take. REviewed with patient the importance of vitals signs in hospital. She feels we are trying to hurt her. I explained the blood pressure squezing her arm. She is agreeable to get vitals completed. Medications per detox scale. She also reports pain being elevated. Medication as orderd. See Emar. continue to follow high fall risk protocol, reminding her why she can not get out of bed alone. She does not rememeber having therapy today, but did let her know she did have therapy sessions.
[2024-07-04] MEDS ORDERED: oxyCODONE 5 MG TAB PO PRN (15:30)
[2024-07-04] MEDS ORDERED: Ondansetron 4 MG/2 ML VIAL IV PRN (15:30)
[2024-07-04] MEDS ORDERED: Naloxone 0.4 MG/ML VIAL IV PRN (15:30)
--- NOTE | 2024-07-04 16:53 | NUR ---
feed in worker attended interdisciplinary clinical rounding with Dr. Graham. Dr. Graham is recommending IPR for patient and has put in an IPR consult. MARILUZ provided the Medicare.gov list for IPR and SNF. MARILUZ explained patient has BCBS and likely may not have skilled benefits for SNF but she would like to have a facility run her insurance to check. Patient and chose [facility] for SNF but would like to go to IPR in the [facility]. MARILUZ spoke with patient's about options for IPR out of town in case the [place] [facility] is unable to accept. Patient's chose IPR in [place] ([facility]) or IPR in [place]. Patient stated she was very serious about staying in [place] and did not want to go elsewhere. SW faxed referral to [facility] and [facility]. MARILUZ spoke with Lili, IPR director, regarding referral. MARILUZ spoke with [facility] whom confirmed patient does not have skilled benefits and would need to private pay. [facility] stated they are unable to accept patient at this time even if she were to private pay. MARILUZ notified patient's of this and discussed the private pay cost of [facility] and [facility]. Patient's would like to stay with IPR at the hospital if they are able to accept. MARILUZ will continue to follow as patient is not medically stable yet. MARILUZ attended multidisciplinary team meeting. Dr Graham stated patient would benefit from IPR in the hospital. MARILUZ was notified patient is not medically stable yet and it may be a couple days before she would be ready to discharge for rehab. Discharge plan: IPR pending accepting facility
--- NOTE | 2024-07-04 20:06 | NUR ---
Patient resting in bed with her spouse at bedside. Patient more irritable and anxious this evening. Refusing vitals from FIRE CONTROL MECHANIC-explained the importance. She was up to the bathroom with FIRE CONTROL MECHANIC assist. 2 assist for patient safety, walker used with direction. She did not feel like she needed Roxicodone for pain, she felt it was too early. She was agreeable to take Ativan to help her relax. Again went over medications patient has taken today with and patient & reviewed what the medications are for. Patient again did not eat dinner, no interest in food. PO intake encouraged. Bedside report to Candy to resume cares
[2024-07-05] VITALS (15 sets, daily range): BP systolic 84–148; BP diastolic 52–91; PULSE 96–119; TEMP 98–98.8
[2024-07-05 06:47] LABS: BASO % 0.2 % (0.0-2.0); EOS % 0.4 % (0.0-4.0); GRAN # 4.4 K/mm3 (1.4-6.5); GRAN % 81.6 % (42.2-75.2); LYMPH # 0.4 K/mm3 (1.2-3.4); LYMPH % 6.6 % (20.0-51.0); MEAN CELL VOLUME 101 fl (80.0-100.0); MEAN CORPUSCULAR HGB CONC 34 g/dl (33.0-37.0); MEAN PLATELET VOLUME 10.1 fl (7.4-10.4); MONO # 0.6 K/mm3 (0.1-0.6); MONO % 10.5 % (1.7-9.3); PLATELET COUNT 117 K/mm3 (130-400); RED BLOOD COUNT 2.05 M/mm3 (4.10-5.30)
[2024-07-05 07:02] LABS: HEMATOCRIT 20.7 % (37.0-47.0); HEMOGLOBIN 7.1 g/dl (12.5-16.0); MEAN CORPUSCULAR HEMOGLOBIN 35 pg (27-31)
[2024-07-05 07:08] LABS: CALCIUM 8.7 mg/dL (8.4-10.2); CREATININE, serum 0.66 mg/dL (0.57-1.11); POTASSIUM 3.4 mEq/L (3.5-4.5)
[2024-07-05] MEDS ORDERED: Potassium Bicarbonate/Citrate 20 MEQ Effervescent TAB PO SCH (08:15)
[2024-07-05] MEDS ORDERED: *Potassium Replacement Protocol MC SCH (08:15)
[2024-07-05] MEDS ORDERED: Thiamine 100 MG TAB PO SCH (09:00)
--- NOTE | 2024-07-05 10:32 | NUR ---
Clinical Allergist faxed clinical updates to [facility], then sent two additional referrals to [facility] and [facility].
--- NOTE | 2024-07-05 10:56 | NUR ---
PT UP TO RECLINER AFTER THERAPY. UP TO [facility] WITH PIVOT TRANSFER X2 ASSIST. PT VOIDED AND RETURNED TO RECLINER. IV ZOFRAN GIVEN FOR C/O NAUSEA POST POTASSIUM. PT AT BEDSIDE. ORTHO SIGNED OFF ON PT. PLAN ON TRANSFER TO [facility] OR [facility].
--- NOTE | 2024-07-05 17:21 | NUR ---
transportation worker attended interdisciplinary clinical rounding with Dr. Rodriguez. Patient is in need of placement for rehab after her hip fracture. MARILUZ and MARILUZ Vasquez spoke with patient and her regarding IPR in the hospital and outside of [place]. stated he would like to speak with the doctor before patient is discharged anywhere and would like to speak with the IPR team if she is not accepted here. SW explained she would relay this and she will also be following up on the facilities they discussed yesterday. Patient and thanked her. MARILUZ contacted [facility] whom expressed at this time "it would be a no" due to patient's behaviors but they would continue to receive updates and if she continues to improve they would consider her. MARILUZ was notified [place] [facility] beds are full and do not have any availability this week. MARILUZ attended multidisciplinary team meeting to discuss discharge plan and provided the above update. MARILUZ explained patient's insurance does not have skilled benefits. SW will continue to follow up. Patient is not medically ready at this time for discharge due to cognition. PT discussed patient possibly needing a psych evaluation. Discharge plan: IPR
--- NOTE | 2024-07-05 20:00 | NUR ---
Report from PCT that patients blood pressure is 84/52. Checked manually at this time by this nurse-112/58. Assessment complete. A&Ox3-forgetful. Denies nausea/shortness of breath. Rating pain 3/10 on pain scale-intermitteny ache-denies need for intervention. VS stable. Dressing to left hip-gauze/tegaderm-CDI. Bailey cath with clear yellow urine. SCD/JOSE JUAN bilat. Denies current needs. Call light in reach. WIll monitor.
--- NOTE | 2024-07-05 22:11 | NUR ---
Patient refusing Q2H vitals for ETOH protocol. Notified DAVIN Mireles. No new orders received. Discussed with patient that she would not be albe to receive pain meds unless current blood pressure was available due to having some lower blood pressures earlier. Verbalizes understanding. Call light in reach. Will monitor.
--- NOTE | 2024-07-05 22:25 | NUR ---
Patient has called [employer] stating there are people coming in her room who are not nurses. This nurse and [employer] to room to speak with patient. Patient asked this nurse to leave. Jeet AN remains in room talking to patient.
--- NOTE | 2024-07-05 23:20 | NUR ---
Patient continues to be confused. Has called spouse at home who then called this nurse for update. This nurse had attempted to call spouse after [employer] incident with no answer. Discussed with spouse that patient is confused and refusing Vital Signs. Spouse is questioning whether patient reeived any narcotics or anxiety medications. Patient has not at thus far but mainly due to refusing medications. Patient denies any needs at this time. Will monitor.
[2024-07-06] VITALS (16 sets, daily range): BP systolic 93–139; BP diastolic 60–91; PULSE 71–101; TEMP 97.8–98.3
--- NOTE | 2024-07-06 00:18 | NUR ---
This nurse to room to give scheduled tylenol. Patient refused stating it gives her heartburn. Rating pain 6/10 on pain scale to left hip-described as constant throbbing. Patient was agreeablae to take an oxycodone but after this nurse pulled the med to take to her she wanted me to leave it at the bedside. Explained I was unable to leave at the bedside but I could return it and when she was fully ready for it I would bring it back. Patient is agreeable to this. She is very teary eyed stating she is sorry for her being confused and she doesnt understand what is going on. DIscussed with patient that sometimes this happens after surgery. Denies any other questions/concerns. Call light in reach. Will monitor.
--- NOTE | 2024-07-06 04:02 | NUR ---
Patient continues to refuse vitals and medications. DAVIN Mireles aware. Will monitor.
--- NOTE | 2024-07-06 05:45 | NUR ---
Patient continues to refuse VS and medications. Did allow PCT to dump issa. Patient is CIWA but unable to score due to VS. DAVIN Mireles is aware and no new orders were received.
--- NOTE | 2024-07-06 05:53 | NUR ---
imaging tech is at bedside-patient is allowing lab to draw blood but refused protonix. Will monitor.
--- NOTE | 2024-07-06 06:29 | NUR ---
Patient called with c/o pain to left hip-rating pain 6/10 on pain scale-described as throbbing. Oxycodone given per dr order. Refused tylenol still stating it causes heartburn. Will continue to monitor.
[2024-07-06 06:46] LABS: BASO % 0.2 % (0.0-2.0); EOS # 0.1 K/mm3 (0.0-0.7); EOS % 1.2 % (0.0-4.0); GRAN # 3.2 K/mm3 (1.4-6.5); GRAN % 75.6 % (42.2-75.2); LYMPH # 0.5 K/mm3 (1.2-3.4); LYMPH % 11.6 % (20.0-51.0); MEAN CELL VOLUME 105 fl (80.0-100.0); MEAN CORPUSCULAR HGB CONC 33 g/dl (33.0-37.0); MEAN PLATELET VOLUME 9.7 fl (7.4-10.4); MONO # 0.5 K/mm3 (0.1-0.6); MONO % 10.9 % (1.7-9.3); PLATELET COUNT 139 K/mm3 (130-400); RED BLOOD COUNT 1.93 M/mm3 (4.10-5.30); REDCELL DISTRIBUTION WIDTH-CV 14.5 % (11.5-14.5)
[2024-07-06 06:48] LABS: HEMATOCRIT 20.3 % (37.0-47.0); HEMOGLOBIN 6.6 g/dl (12.5-16.0); MEAN CORPUSCULAR HEMOGLOBIN 34 pg (27-31)
--- NOTE | 2024-07-06 06:53 | NUR ---
Bedside report given to KIRILL Palm.
--- NOTE | 2024-07-06 06:56 | NUR ---
Critical Hgb of 6.6 passed on to KIRILL Palm in bedside report. Unable to reach hospitalist at this time.
[2024-07-06 06:58] LABS: CALCIUM 8.8 mg/dL (8.4-10.2); CREATININE, serum 0.67 mg/dL (0.57-1.11); POTASSIUM 3.7 mEq/L (3.5-4.5)
--- NOTE | 2024-07-06 07:30 | NUR ---
Patient sitting up in bed talking on speaker phone with daughter. Patient A&O. VSS. IV CDI. Bailey intact. Call light within reach. Bed alarm on
[2024-07-06] MEDS ORDERED: NS 250 ML IV ONE (10:30)
--- NOTE | 2024-07-06 12:53 | NUR ---
Blood transfusion started. Patient A&Ox3. at the bedside. VSS. IV CDI. Call light within reach. Bed alarm on
--- NOTE | 2024-07-06 13:09 | NUR ---
Nurse at the bedside first 15 minutes of blood transfusion. Patient A&Ox3. VSS. IV CDI. Denies pain and discomfort. at the bedside. Call light within reach. Bed alarm on
--- NOTE | 2024-07-06 15:21 | NUR ---
Blood transfusion complete. Patient tolerated well. A&Ox3. VSS. IV CDI. at the bedside. Call light within reach. Bed alarm on
--- NOTE | 2024-07-06 17:04 | NUR ---
farmworker dairy was notified patient is not medically ready for discharge as she needs a blood transfusion. SW was notified IPR at the hospital is still following along and would update the patient and family is they are unable to accept. SW updated patient and her family that [facility] is currently full and [facility] is requesting updates. SW explained the hospital is continuing to follow along with their IPR unit and they would update them if they are unable to accept. Patient and understood. SW encouraged patient to continue to work with therapy. SW attended multidisciplinary team meeting and provided the update above. everyone is in agreement patient will need rehab. Discharge plan: IPR pending acceptance at a facility
[2024-07-06] MEDS ORDERED: QUEtiapine 25 MG TAB PO SCH (18:03)
--- NOTE | 2024-07-06 20:00 | NUR ---
PILLOW PLACED BETWEEN LEGS FOR PATIENT REMINDER NOT TO CROSS HER LEGS. ZURDO REFUSING ICE TO SITE AT THIS TIME.
[2024-07-07] VITALS (14 sets, daily range): BP systolic 98–137; BP diastolic 66–82; PULSE 78–96; TEMP 97.9–98.5
--- NOTE | 2024-07-07 04:41 | NUR ---
ZURDO IS AWAKE AND ALERT SITTING UP IN BED, PATIENTS AT HER BEDSIDE. PATIENTS CONVERSATION SOMEWHAT CONFUSED, INAPPROPRIATE WORD FINDING. PATIENT DENIES ANY NEEDS AT THIS TIME. DRESSING TO L HIP INCISION SITE CDI. FALL PRECAUTIONS IN PLACE. CALL LIGHT WITHIN REACH.
[2024-07-07 06:36] LABS: BASO % 0.6 % (0.0-2.0); EOS # 0.1 K/mm3 (0.0-0.7); EOS % 2.2 % (0.0-4.0); GRAN # 3.7 K/mm3 (1.4-6.5); GRAN % 72.2 % (42.2-75.2); LYMPH # 0.6 K/mm3 (1.2-3.4); LYMPH % 11.6 % (20.0-51.0); MEAN CORPUSCULAR HGB CONC 33 g/dl (33.0-37.0); MEAN PLATELET VOLUME 9.5 fl (7.4-10.4); MONO # 0.7 K/mm3 (0.1-0.6); MONO % 12.8 % (1.7-9.3); PLATELET COUNT 173 K/mm3 (130-400); RED BLOOD COUNT 2.72 M/mm3 (4.10-5.30); REDCELL DISTRIBUTION WIDTH-CV 17.7 % (11.5-14.5)
[2024-07-07 06:39] LABS: HEMATOCRIT 27.3 % (37.0-47.0); MEAN CELL VOLUME 100 fl (80.0-100.0); MEAN CORPUSCULAR HEMOGLOBIN 33 pg (27-31)
[2024-07-07 06:40] LABS: HEMOGLOBIN 9.1 g/dl (12.5-16.0)
--- NOTE | 2024-07-07 06:42 | NUR ---
PATIENT IS AWAKE AND ALERT, UP TO COMMODE AND BACK TO BED WITH 1-2 PERSON ASSIT. PATIENTS LEFT LEG APPEARS TO ROTATE IN TO THE BODY. PATIENT NOW RESTING INBED. DENEIS ANY NEEDS AT THIS TIME. CALL LIGHT WITHIN REACH. FALL PRECAUTIONS IN PLACE.
--- NOTE | 2024-07-07 07:45 | NUR ---
Patient sitting up in bed. A&Ox4, with intermittent confusion. VSS. IV CDI. LF hip elevated on pillow. Nurse encouraging ice on thigh, patient refusing. at the bedside. Call light within reach. Bed alarm on
[2024-07-07] MEDS ORDERED: QUEtiapine 25 MG TAB PO SCH (10:30)
--- NOTE | 2024-07-07 11:47 | NUR ---
awake resting in bed with at bedside, bedside shift report received from KIRILL Palm, patient is alert and oriented times 4 but communication is nonsensical,
--- NOTE | 2024-07-07 13:15 | NUR ---
ambulating in guajardo with physical therapy, cocyx assessed, it is red and mepilex dressing in place
--- NOTE | 2024-07-07 13:31 | NUR ---
cleaning and maintenance worker faxed clinical updates to [facility]. SW received update from [facility] that they are still considering her and Lili, [facility] director, is going to speak with family. SW was notified Tyoa with [facility] is coming to the hospital to speak with patient and her . Discharge plan: [facility]
--- NOTE | 2024-07-07 14:00 | NUR ---
IPR director and [facility] staff in to assess for discharge
--- NOTE | 2024-07-07 14:50 | NUR ---
stood at side of bed, mepilex dressing is rolling up at sides, removed, cocyx is red and states she has had a pressure ulcer in the past, cocyx is red and new mepilex dressing placed
--- NOTE | 2024-07-07 17:11 | NUR ---
resting in bed talking to family on the phone
--- NOTE | 2024-07-07 18:49 | NUR ---
bedside shift report given to KIRILL Moreno and KIRILL Peralta
--- NOTE | 2024-07-07 19:30 | NUR ---
Assessment complete. A&Ox3. Denies pain/nausea/shortness of breath. VS stable. Patient very cooperative tonight and talkative. Dressing to left hip-gauze/tegaderm x2-CDI. Voiding without difficulty. SCD/JOSE JUAN herr. Plan of care discussed for this shift to include meds/pain control/calling for questions/concerns. Verbalizes understanding. Call light in reach/bed alarm on. Will monitor.
[2024-07-08 00:36] VITALS: BP_SYST 98
[2024-07-08 03:41] VITALS: BP_SYST 98
[2024-07-08 03:58] VITALS: BP 125/80; PULSE 113; TEMP 98.4
--- NOTE | 2024-07-08 08:00 | NUR ---
PT SITTING UP IN BED. AAOX4, HEAD TO TOE ASSESSMENT COMPLETED. MORNING MEDS GIVEN. PT REPORTS L FEMUR PAIN. PAIN MEDS GIVEN. AT BEDSIDE. BED IN LOWEST POSITION. CALL LIGHT IN REACH. BED ALARM ON.
[2024-07-08 08:30] VITALS: BP_SYST 125
[2024-07-08] MEDS ORDERED: FERROUS SU325 MG/TAB PO (09:55)
[2024-07-08] MEDS ORDERED: TYLENOL 500MG500 MG PO (09:56)
[2024-07-08] MEDS ORDERED: XARELTO10 MG PO (09:56)
[2024-07-08] MEDS ORDERED: SEROQUEL 2525 MG/TAB PO (09:57)
[2024-07-08] MEDS ORDERED: SENEXON-S 50-81 EACH PO (09:57)
[2024-07-08] MEDS ORDERED: MASON NATURAL2000 IU PO (09:58)
[2024-07-08] MEDS ORDERED: PROTONIX 40MG T40 MG PO (09:58)
--- NOTE | 2024-07-08 11:28 | NUR ---
Pt. transfered to [facility]. at this time
--- NOTE | 2024-07-08 13:23 | NUR ---
Sack Sorter was notified that IPR got auth for patient and can accept today. SW updated patient's in the hallway. Discharge Plan: IPR Today
== END 2024-07-08 11:05 | DRG 481 ==
LOC: COL.ER 18:19 → SURG 20:12
PROVIDERS: Family Medicine; Internal Medicine; Orthopaedic Surgery; Physician Assistant; ADMIT Internal Medicine
PROC: 0QS706Z Reposition Left Upper Femur with Intramedullary Internal Fixation Device, Open Approach (ICD-10-PCS; principal; 2024-07-02 12:00)
DX: M80.052A Age-related osteoporosis with current pathological fracture, left femur, initial encounter for fracture (principal); C34.90 Malignant neoplasm of unspecified part of unspecified bronchus or lung; G93.40 Encephalopathy, unspecified; N39.0 Urinary tract infection, site not specified; D64.9 Anemia, unspecified; F41.9 Anxiety disorder, unspecified; R45.1 Restlessness and agitation; F10.90 Alcohol use, unspecified, uncomplicated; E87.6 Hypokalemia; Z86.711 Personal history of pulmonary embolism; I48.91 Unspecified atrial fibrillation; S09.90XA Unspecified injury of head, initial encounter; W18.09XA Striking against other object with subsequent fall, initial encounter; Y93.G1 Activity, food preparation and clean up; Y92.000 Kitchen of unspecified non-institutional (private) residence as the place of occurrence of the external cause
CPT/HCPCS: A4314; A9284; C1713; J0690; J0696; J1100; J1171; J1630; J2060; J2250; J2371; J2405; J2704; J2795; J3010; J7030; J7050; J7120; J7512; P9016